=== PATIENT | male | born 1955 | race Caucasian/White ===

== ENCOUNTER 2023-12-09 13:18 | Inpatient (IN) | payer MEDICARE, OTHER ==
[~2023-12-09] VITALS: Ht 177.8 cm; Wt 77.2 kg
[2023-12-09 16:54] LABS: BASOPHILS % (AUTO) 0.5 % (0.0-2.0); EOSINOPHILS % (AUTO) 1.3 % (1.0-6.0); HEMATOCRIT 44.5 % (41-53); HEMOGLOBIN 14.8 g/dL (13.5-17.5); LYMPHOCYTES # (AUTO) 0.9 K/uL (1.0-4.8); LYMPHOCYTES % (AUTO) 9.9 % (22.0-44.0); MEAN CORPUSCULAR HEMOGLOBIN 29.9 pg (26.0-34.0); MEAN CORPUSCULAR HGB CONC 33.3 G/dL (31.0-37.0); MEAN CORPUSCULAR VOLUME 90 fL (80-100); MONOCYTES # (AUTO) 0.7 K/uL (0.1-1.0); MONOCYTES % (AUTO) 7.1 % (2.0-9.0); NEUTROPHILS # (AUTO) 7.7 K/uL (1.8-7.7); NEUTROPHILS % (AUTO) 81.2 % (40.0-70.0); PLATELET COUNT (AUTO) 230 K/uL (150-450); RED BLOOD CELL COUNT(AUTO) 4.95 MIL/uL (4.50-5.90); RED CELL DISTRIBUTION WIDTH 15.3 % (11.5-14.5); WHITE BLOOD COUNT (AUTO) 9.5 K/uL (4.5-11.0)
[2023-12-09 17:04] LABS: ANION GAP 2 mmol/L (8-16); CALCIUM, TOTAL 11.5 mg/dL (8.8-10.5); CARBON DIOXIDE 34 mmol/L (22-29); CHLORIDE 102 mmol/L (98-107); CREATININE 1.11 mg/dL (0.60-1.30); GLOMERULAR FILTR. RATE CALC > 60 mL/min (>60); GLUCOSE,RANDOM 144 mg/dL (70-110); POTASSIUM 3.8 mmol/L (3.5-5.1); SODIUM SERUM 138 mmol/L (136-145); UREA NITROGEN, BLOOD 18 mg/dL (7-18)
[2023-12-09 17:12] LABS: TROPONIN I-HIGH SENSITIVITY 19 ng/L (<76)
[2023-12-09 17:14] LABS: LACTIC ACID 1.5 mmol/L (0.4-2.0)
[2023-12-09] MEDS ORDERED: IOHEXOL 350 MG/ML 100 ML VIAL ONE (17:40)
[2023-12-09] MEDS ORDERED: SODIUM CHLORIDE 0.9% 100 ML ONE (17:40)
[2023-12-09] MEDS ORDERED: ONDANSETRON HCL 4 MG/2 ML VIAL IVP PRN (19:00)
[2023-12-09 20:00] VITALS: BP 147/51; PULSE 76; PULSE 79; RESP 12; TEMP 98.1
[2023-12-09] MEDS: RINGERS SOLUTION,LACTATED 1,000 ML IV SCH (20:04)
[2023-12-09] MEDS: DOCUSATE SODIUM 100 MG CAPSULE PO SCH (21:00)
[2023-12-09] MEDS: MORPHINE SULFATE 4 MG/ML SYRINGE IVP PRN (21:14)
[2023-12-09] MEDS: CHLORHEXIDINE GLUCONATE 2% TOWELETTE [2'S/6'S] TP SCH (21:25)
[2023-12-09] MEDS: ETHYL ALCOHOL 62% ANTISEPTIC NASAL SANITIZER 0.6 ML AMPUL NASAL SCH (21:25)
[2023-12-10] VITALS (7 sets, daily range): BP systolic 129–157; BP diastolic 64–108; PULSE 63–79; RESP 12–16; TEMP 97.5–98.2; O2SAT 94–97
[2023-12-10 05:49] LABS: BASOPHILS % (AUTO) 0.5 % (0.0-2.0); EOSINOPHILS % (AUTO) 3.3 % (1.0-6.0); HEMATOCRIT 43.6 % (41-53); HEMOGLOBIN 14.5 g/dL (13.5-17.5); LYMPHOCYTES # (AUTO) 1.2 K/uL (1.0-4.8); MEAN CORPUSCULAR HEMOGLOBIN 30.2 pg (26.0-34.0); MEAN CORPUSCULAR HGB CONC 33.2 G/dL (31.0-37.0); MEAN CORPUSCULAR VOLUME 91 fL (80-100); MONOCYTES # (AUTO) 0.8 K/uL (0.1-1.0); MONOCYTES % (AUTO) 8.8 % (2.0-9.0); NEUTROPHILS # (AUTO) 6.8 K/uL (1.8-7.7); NEUTROPHILS % (AUTO) 74.4 % (40.0-70.0); PLATELET COUNT (AUTO) 213 K/uL (150-450); RED BLOOD CELL COUNT(AUTO) 4.79 MIL/uL (4.50-5.90); RED CELL DISTRIBUTION WIDTH 15.4 % (11.5-14.5); WHITE BLOOD COUNT (AUTO) 9.1 K/uL (4.5-11.0)
[2023-12-10 06:09] LABS: ANION GAP 3 mmol/L (8-16); CALCIUM, TOTAL 10.9 mg/dL (8.8-10.5); CARBON DIOXIDE 31 mmol/L (22-29); CHLORIDE 104 mmol/L (98-107); CREATININE 0.93 mg/dL (0.60-1.30); GLOMERULAR FILTR. RATE CALC > 60 mL/min (>60); GLUCOSE,RANDOM 107 mg/dL (70-110); SODIUM SERUM 138 mmol/L (136-145); UREA NITROGEN, BLOOD 17 mg/dL (7-18)
[2023-12-10] MEDS ORDERED: GADOTERATE MEGLUMINE 10 MMOL/20 ML VIAL IVP ONE (10:49)
[2023-12-10] MEDS: SODIUM CHLORIDE 0.9% 1,000 ML IV ONE (12:01)
[2023-12-10] MEDS: MORPHINE SULFATE 2 MG/ML SYRINGE IVP PRN (14:08)
[2023-12-10] MEDS: PERTUSS(ACELL),DIPH,TET/PF 0.5 ML SYRINGE [ADULT] IM. ONE (20:04)
[2023-12-11] VITALS (8 sets, daily range): BP systolic 103–166; BP diastolic 73–104; PULSE 61–88; RESP 16–18; TEMP 97.6–98.4
[2023-12-11] MEDS: ACETAMINOPHEN 325 MG TABLET PO PRN (01:09)
[2023-12-11] MEDS: HydrALAZINE HCL 20 MG/ML VIAL IVP PRN (04:13)
[2023-12-11 06:34] LABS: BASOPHILS % (AUTO) 0.3 % (0.0-2.0); EOSINOPHILS % (AUTO) 3.5 % (1.0-6.0); HEMATOCRIT 45.4 % (41-53); HEMOGLOBIN 14.6 g/dL (13.5-17.5); LYMPHOCYTES # (AUTO) 0.9 K/uL (1.0-4.8); LYMPHOCYTES % (AUTO) 12.4 % (22.0-44.0); MEAN CORPUSCULAR HEMOGLOBIN 29.4 pg (26.0-34.0); MEAN CORPUSCULAR HGB CONC 32.2 G/dL (31.0-37.0); MEAN CORPUSCULAR VOLUME 91 fL (80-100); MONOCYTES # (AUTO) 0.7 K/uL (0.1-1.0); MONOCYTES % (AUTO) 9.8 % (2.0-9.0); NEUTROPHILS # (AUTO) 5.4 K/uL (1.8-7.7); PLATELET COUNT (AUTO) 204 K/uL (150-450); RED BLOOD CELL COUNT(AUTO) 4.97 MIL/uL (4.50-5.90); RED CELL DISTRIBUTION WIDTH 15.2 % (11.5-14.5); WHITE BLOOD COUNT (AUTO) 7.3 K/uL (4.5-11.0)
[2023-12-11 07:37] LABS: ANION GAP 7 mmol/L (8-16); CALCIUM, TOTAL 10.4 mg/dL (8.8-10.5); CARBON DIOXIDE 26 mmol/L (22-29); CHLORIDE 103 mmol/L (98-107); CREATININE 0.77 mg/dL (0.60-1.30); GLOMERULAR FILTR. RATE CALC > 60 mL/min (>60); GLUCOSE,RANDOM 107 mg/dL (70-110); SODIUM SERUM 136 mmol/L (136-145); UREA NITROGEN, BLOOD 15 mg/dL (7-18)
[2023-12-11] MEDS: AmLODIPine BESYLATE 10 MG TABLET PO SCH (09:00)
[2023-12-11] MEDS: LORazepam 2 MG/ML VIAL IVP PRN (16:02)
[2023-12-12 03:54] VITALS: BP 133/90; PULSE 78; RESP 19; TEMP 97.5
[2023-12-12 06:47] LABS: BASOPHILS % (AUTO) 0.5 % (0.0-2.0); EOSINOPHILS % (AUTO) 1.9 % (1.0-6.0); HEMOGLOBIN 15.7 g/dL (13.5-17.5); LYMPHOCYTES % (AUTO) 10.4 % (22.0-44.0); MEAN CORPUSCULAR HEMOGLOBIN 29.9 pg (26.0-34.0); MEAN CORPUSCULAR HGB CONC 33.4 G/dL (31.0-37.0); MEAN CORPUSCULAR VOLUME 90 fL (80-100); MONOCYTES # (AUTO) 1.1 K/uL (0.1-1.0); MONOCYTES % (AUTO) 11.3 % (2.0-9.0); NEUTROPHILS # (AUTO) 7.2 K/uL (1.8-7.7); NEUTROPHILS % (AUTO) 75.9 % (40.0-70.0); PLATELET COUNT (AUTO) 225 K/uL (150-450); RED BLOOD CELL COUNT(AUTO) 5.24 MIL/uL (4.50-5.90); WHITE BLOOD COUNT (AUTO) 9.5 K/uL (4.5-11.0)
[2023-12-12 07:00] LABS: ANION GAP 5 mmol/L (8-16); CALCIUM, TOTAL 10.7 mg/dL (8.8-10.5); CARBON DIOXIDE 27 mmol/L (22-29); CHLORIDE 103 mmol/L (98-107); CREATININE 0.73 mg/dL (0.60-1.30); GLOMERULAR FILTR. RATE CALC > 60 mL/min (>60); GLUCOSE,RANDOM 119 mg/dL (70-110); POTASSIUM 4.2 mmol/L (3.5-5.1); SODIUM SERUM 135 mmol/L (136-145); UREA NITROGEN, BLOOD 17 mg/dL (7-18)
[2023-12-12 08:41] VITALS: BP 123/93; PULSE 81; RESP 18; TEMP 96
[2023-12-12 12:02] VITALS: BP 112/78; PULSE 72; RESP 18; TEMP 98.1
[2023-12-12] MEDS: DENTURE ADHESIVE 68 GM CREAM DT ONE (14:04)
[2023-12-12 16:10] VITALS: BP 123/85; PULSE 86; RESP 18; TEMP 97
[2023-12-12 19:30] VITALS: BP 107/73; PULSE 80; RESP 18; TEMP 97.5
[2023-12-12 23:43] VITALS: BP 127/81; PULSE 71; RESP 18; TEMP 97.3
[2023-12-13 04:31] VITALS: BP 116/83; PULSE 82; RESP 17; TEMP 98.4
[2023-12-13 06:46] LABS: BASOPHILS % (AUTO) 0.6 % (0.0-2.0); EOSINOPHILS % (AUTO) 4.2 % (1.0-6.0); HEMOGLOBIN 15.8 g/dL (13.5-17.5); LYMPHOCYTES # (AUTO) 1.7 K/uL (1.0-4.8); MEAN CORPUSCULAR HEMOGLOBIN 29.7 pg (26.0-34.0); MEAN CORPUSCULAR HGB CONC 32.8 G/dL (31.0-37.0); MEAN CORPUSCULAR VOLUME 91 fL (80-100); MONOCYTES # (AUTO) 0.8 K/uL (0.1-1.0); MONOCYTES % (AUTO) 9.4 % (2.0-9.0); NEUTROPHILS % (AUTO) 66.8 % (40.0-70.0); PLATELET COUNT (AUTO) 240 K/uL (150-450); RED CELL DISTRIBUTION WIDTH 15.1 % (11.5-14.5)
[2023-12-13 07:06] LABS: ANION GAP 6 mmol/L (8-16); CALCIUM, TOTAL 10.8 mg/dL (8.8-10.5); CARBON DIOXIDE 27 mmol/L (22-29); CHLORIDE 104 mmol/L (98-107); CREATININE 0.81 mg/dL (0.60-1.30); GLOMERULAR FILTR. RATE CALC > 60 mL/min (>60); GLUCOSE,RANDOM 114 mg/dL (70-110); POTASSIUM 4.4 mmol/L (3.5-5.1); SODIUM SERUM 137 mmol/L (136-145); UREA NITROGEN, BLOOD 26 mg/dL (7-18)
[2023-12-13 08:25] VITALS: BP 111/83; PULSE 83; RESP 18; TEMP 97.8
[2023-12-13 11:23] VITALS: BP 106/78; PULSE 85; RESP 19; TEMP 97.6
[2023-12-13 15:01] VITALS: BP 134/60; PULSE 86; RESP 19; TEMP 98.2
[2023-12-13 20:37] VITALS: BP 125/85; PULSE 93; RESP 18; TEMP 97.8
[2023-12-14 00:44] VITALS: BP 117/87; PULSE 70; RESP 18; TEMP 97.9
[2023-12-14 03:44] VITALS: BP 128/98; PULSE 78; RESP 19; TEMP 98.2
[2023-12-14 08:14] VITALS: BP 119/82; PULSE 75; RESP 18; TEMP 98
[2023-12-14 11:12] VITALS: BP 95/66; PULSE 77; RESP 19; TEMP 97.6
[2023-12-14 15:46] VITALS: BP 105/75; PULSE 75; RESP 18; TEMP 98
[2023-12-14 19:58] VITALS: BP 105/75; PULSE 82; RESP 18; TEMP 97.7
[2023-12-15] VITALS (7 sets, daily range): BP systolic 109–124; BP diastolic 76–88; PULSE 73–92; RESP 16–20; TEMP 97.9–99
[2023-12-16 05:11] VITALS: BP 103/80; PULSE 73; RESP 18; TEMP 97.9
[2023-12-16 08:57] VITALS: BP 119/76; PULSE 72; RESP 18; TEMP 97.5
[2023-12-16 15:31] VITALS: BP 106/72; PULSE 80; RESP 20; TEMP 97.6
[2023-12-16 19:27] VITALS: BP 129/80; PULSE 78; RESP 18; TEMP 98.5
[2023-12-17 04:49] VITALS: BP 129/89; PULSE 76; RESP 18; TEMP 98.2
[2023-12-17 08:05] VITALS: BP 126/84; PULSE 80; RESP 18; TEMP 98.4
[2023-12-17 15:26] VITALS: BP 100/72; PULSE 81; RESP 20; TEMP 97.8
[2023-12-17 20:43] VITALS: BP 118/84; PULSE 75; RESP 19; TEMP 98.5
[2023-12-18 04:39] VITALS: BP 105/74; PULSE 75; RESP 19; TEMP 97.7
[2023-12-18 08:07] VITALS: BP 108/77; PULSE 73; RESP 18; TEMP 96.8
[2023-12-18] MEDS ORDERED: AMLO-258 PO (12:26)
== END 2023-12-18 14:51 | disposition home or self-care (01) | DRG 552 ==
LOC: EMS 16:31 → ICUN 20:57 → ICU 21:06 → 5S 12-10 22:40 → 6S 12-15 14:30
PROVIDERS: ADMIT Internal Medicine; ATTEND Internal Medicine
DX: S12.120A Other displaced dens fracture, initial encounter for closed fracture (principal); E87.3 Alkalosis; G93.89 Other specified disorders of brain; S40.811A Abrasion of right upper arm, initial encounter; E83.52 Hypercalcemia; S61.212A Laceration without foreign body of right middle finger without damage to nail, initial encounter; W11.XXXA Fall on and from ladder, initial encounter; I10 Essential (primary) hypertension; Y93.89 Activity, other specified; Y92.89 Other specified places as the place of occurrence of the external cause; Y99.8 Other external cause status
CPT/HCPCS: 70450; 70498; 70553; 71045; 72125; 72156; 80048; 83605; 83735; 84484; 85025; 87081; 87481; 90715; 92610; 93005; 97116; 97162; 97166; 97530; 97535; 99291; G0378; J0360; J2060; J2270; J7030; J7050; J7120; Q9967; 36415-L1; 36415-TC